=== PATIENT | male | born 1995 | race Caucasian/White ===

== ENCOUNTER 2022-08-08 14:56 | Emergency (ER) | payer BC, SELFPAY ==
[2022-08-08 15:19] VITALS: BP 124/78; PULSE 54; RESP 16; TEMP 36.6; O2SAT 98; BMI 21.5
--- NOTE | 2022-08-08 17:48 | ED.GENADULT ---
HPI - General Adult General Chief complaint: Overdose Stated complaint: Overdose Fentanyl Xanex Time Seen by Provider: 08/08/22 17:27 History of Present Illness HPI narrative: This 26-year-old male comes in reporting symptoms of anxiety and insomnia. He states that he went through treatment a couple months ago and came off of benzodiazepines. He states that he took Xanax a couple days ago. He got this from a friend who is making it. He states that they were foreign 0.5 mg and he took 2 of them. He also had some alcohol yesterday. He states that he smokes marijuana. He does have prescription for gabapentin and Effexor and states that those are not helping him at all. Related Data Home Medications Medication Instructions Recorded Confirmed aripiprazole 5 mg tablet (Abilify) 5 mg PO BID 08/08/22 08/08/22 doxycycline hyclate 30 mg PO HS 08/08/22 08/08/22 gabapentin 400 mg capsule 400 mg PO TID 08/08/22 08/08/22 Previous Rx's Medication Instructions Recorded hydroxyzine pamoate 25 mg capsule 25 mg PO QID PRN #30 caps 08/08/22 (Vistaril) Allergies Allergy/AdvReac Type Severity Reaction Status Date / Time banana Allergy Mild violently Verified 08/08/22 15:29 ill Review of Systems Status of ROS: Reports: 10 or more systems reviewed and unremarkable except as noted in History and below Narrative: Constitutional: No fevers, no weight gain or loss. Eyes: No discharge. No vision changes. HENT: No congestion, no sore throat, no ear pain. Cardiovascular: No chest pain, no palpitations. Respiratory: No shortness of breath, no wheezes, no cough. Gastrointestinal: No abdominal pain, no vomiting, no diarrhea. Genitourinary: No dysuria, no hematuria. Musculoskeletal: Normal range of motion. Skin: No rashes, no pruritis. Neurological: No dizziness, weakness, sensory change, speech change. Endo/Heme/Allergies: No bruising or bleeding. No polydipsia. Pysch: He reports anxiety and panic symptoms. He has insomnia. All other systems reviewed and are negative. PFSH PFSH Social History Smoking Status: Current every day smoker Do you use any of these nicotine containing products: E-Cigarettes Second hand tobacco smoke exposure: No How often do you have a drink containing alcohol: monthly or less How many standard drinks containing alcohol do you have on a typical day: 1 or 2 How often do you have six or more drinks on one occasion: Never AUDIT-C Alcohol total score: 1 Non-prescribed substance use: marijuana (any form) and sedatives/tranquilizers Exam Narrative: Exam Narrative: Constitutional: Well-developed, well-nourished, no acute distress. HEENT: Normocephalic, atraumatic. Neck: Normal range of motion. Nontender. Supple. Heart: Regular. No murmurs. Normal rate. Intact distal pulses. Lungs: Clear to auscultation. No chest discomfort. No wheezes, rhonchi, or rales. Abdomen: Normal bowel sounds. Nontender. No rebound tenderness. Genitalia: Deferred. Back: No midline tenderness. Normal range of motion. Extremities: Normal range of motion. No injury. Skin: Intact. No rash. Warm. No erythema or pallor. Neurologic: No altered sensation. No weakness. Alert and oriented. His speech is slightly slurred. Psychiatric: No suicidality. He reports anxiety and panic. He has insomnia. Nursing notes and vitals signs are reviewed. Const: Vital Signs, click to edit/add: Vital Signs - 24 hr 08/08/22 15:19 08/08/22 18:00 Temperature 97.8 F Pulse Rate [Right Pulse Oximeter] 54 L 55 L Respiratory Rate 16 Blood Pressure [Ri ght Upper Arm] 124/78 140/99 H Pulse Oximetry 98 99 Oxygen Delivery Me thod Room Air Room Air Course Vital Signs Vital signs: Initial Vital Signs Temperature 97.8 F 08/08/22 15:19 Temperature Source Temporal Artery Scan 08/08/22 15:19 Pulse Rate 54 L 08/08/22 15:19 Respiratory Rate 16 08/08/22 15:19 Blood Pressure 124/78 08/08/22 15:19 Blood Pressure Mean 93 08/08/22 15:19 Blood Pressure Position Sitting 08/08/22 15:19 Pulse Oximetry 98 08/08/22 15:19 Oxygen Delivery Method 08/08/22 15:19 Vital Signs Temperature 97.8 F 08/08/22 15:19 Pulse Rate 54 L 08/08/22 15:19 Respiratory Rate 16 08/08/22 15:19 Blood Pressure 124/78 08/08/22 15:19 Pulse Oximetry 98 08/08/22 15:19 Oxygen Delivery Method 08/08/22 15:19 Temperature 97.8 F 08/08/22 15:19 Pulse Rate 55 L 08/08/22 18:00 Respiratory Rate 16 08/08/22 15:19 Blood Pressure 140/99 H 08/08/22 18:00 Pulse Oximetry 99 08/08/22 18:00 Oxygen Delivery Method 08/08/22 18:00 Medical Decision Making MDM Narrative Medical decision making narrative: This patient comes in reporting anxiety and insomnia symptoms. He has lots of anxiety and admits to taking a total of 9 mg of Xanax a couple days ago. This was the 1 time event on that day. He is not taking Xanax regularly and does not appear to be in risk of withdrawal symptoms. He did state to the nurse that he thinks about not living anymore. A tele health assessment was ordered and completed. He does not have any specific suicide plan. The tele health quality technician also spoke with the patient's father who states that he has been doing great except for this relapse that happened a couple days ago. This patient is okay to return home. His labs and urine drug screen are not identifying any other findings. He agrees to a safety plan and arrangements are made for follow-up therapy. I did prescribe hydroxyzine for additional antianxiety benefit. This may also help him with his insomnia. Lab Data Labs: Lab Results 08/08/22 08/08/22 08/08/22 Range/Units 17:55 18:02 18:02 WBC 5.94 (4.50-11.00) K/uL RBC 4.90 (4.30-5.90) m/uL Hgb 16.1 (13.5-17.5) gm/dL Hct 45.8 (37.0-53.0) % MCV 94 (80-100) fL MCH 33 (26-34) pg MCHC 35 (32-36) gm/dL RDW Coeff of Abram 11.6 (11.5-15.5) % Plt Count 363 (140-440) K/uL Neut % (Auto) 45.1 (42.0-72.0) % Lymph % (Auto) 43.1 (20-44) % [place] % (Auto) 6.6 (0.0-11.0) % Eos % (Auto) 4.4 (0.0-7.0) % Baso % (Auto) 0.8 (0.0-3.0) % Neut # (Auto) 2.68 (1.7-7.0) K/uL Lymph # (Auto) 2.56 (0.90-2.90) K/uL [place] # (Auto) 0.40 (0.00-0.90) K/UL Eos # (Auto) 0.26 (0.00-0.50) K/uL Baso # (Auto) 0.05 (0.00-0.30) K/uL Abs Immat Gran (auto) 0.00 (0.00-0.30) K/uL Sodium 141 (135-149) mmol/L Potassium 4.2 (3.6-5.1) mmol/L Chloride 104 (96-114) mmol/L Carbon Dioxide 27 (20-32) mmol/L BUN 16 (5-24) mg/dL Creatinine 0.9 (0.5-1.5) mg/dL Estimated Creat Clear 120.75 Estimated GFR 122 ml/min Glucose 100 (60-115) mg/dL Calcium 10.2 (8.4-10.6) mg/dL Total Bilirubin 0.3 (0.1-1.5) mg/dL Direct Bilirubin 0.1 (0.0-0.5) mg/dL AST 25 (12-35) U/L ALT 20 (4-50) U/L Alkaline Phosphatase 74 (40-150) U/L Total Protein 8.5 H (6.0-8.3) g/dL Albumin 5.3 H (3.3-5.0) g/dL Urine Opiates Screen Negative (Negative) Ur Oxycodone Screen Negative (Negative) Urine Methadone Screen Negative (Negative) Ur Propoxyphene Screen Negative (Negative) Acetaminophen < 10.0 L (10.0-30.0) ug/mL Ur Barbiturates Screen Negative (Negative) U Tricyclic Antidepress POSITIVE A* (Negative) Ur Phencyclidine Scrn Negative (Negative) Ur Amphetamines Screen Negative (Negative) U Methamphetamines Scrn Negative (Negative) U Benzodiazepines Scrn POSITIVE A* (Negative) Urine Cocaine Screen Negative (Negative) U Marijuana (THC) Screen POSITIVE A* (Negative) Ur Drug Screen Comment See Note Ethyl Alcohol < 0.01 L (0.01-0.03) % Discharge Plan Discharge Clinical Impression: Anxiety, Drug overdose Patient Disposition: Home w/ Parent or Adult Condition: Stable Additional Instructions: Take medication as prescribed. Follow up with therapy session as arranged. Follow-up with primary physician for ongoing management of symptoms and medications. Return if worsening. Prescriptions: New hydroxyzine pamoate [Vistaril] 25 mg capsule 25 mg PO QID PRNQty: 30 0RF No Action gabapentin 400 mg capsule 400 mg PO TID doxycycline hyclate [Doxi Film] 30 mg PO HS aripiprazole [Abilify] 5 mg tablet 5 mg PO BID Follow Up/Referrals: Provider,Not a Local [Primary Care Provider] - Stand Alone Forms: [employer] Info Instructions
[2022-08-08 18:00] VITALS: BP 140/99; PULSE 55; O2SAT 99
[2022-08-08 18:10] LABS: Amphetamine Screen Urine Negative (Negative); Barbiturate Screen Urine Negative (Negative); Cocaine Screen Urine Negative (Negative); Methadone Screen Urine Negative (Negative); Methamphetamines Screen Urine Negative (Negative); Opiate Screen Urine Negative (Negative); Oxycodone Screen Urine Negative (Negative); Phencyclidine Screen Urine Negative (Negative)
[2022-08-08 18:20] LABS: Benzodiazepines Screen Urine POSITIVE (Negative); Cannabinoid Screen Urine POSITIVE (Negative); Tricyclic Antidepressant Urine POSITIVE (Negative)
[2022-08-08 18:34] LABS: Basophils Absolute Auto 0.05 K/uL (0.00-0.30); Basophils Percent Auto 0.8 % (0.0-3.0); Eosinophils Absolute Auto 0.26 K/uL (0.00-0.50); Eosinophils Percent Auto 4.4 % (0.0-7.0); Hematocrit 45.8 % (37.0-53.0); Hemoglobin* 16.1 gm/dL (13.5-17.5); Lymphocytes Absolute Auto 2.56 K/uL (0.90-2.90); Lymphocytes Percent Auto 43.1 % (20-44); Mean Corpuscular HGB Conc 35 gm/dL (32-36); Mean Corpuscular Hemoglobin 33 pg (26-34); Mean Corpuscular Volume 94 fL (80-100); Monocytes Percent Auto 6.6 % (0.0-11.0); Neutrophils Absolute Auto 2.68 K/uL (1.7-7.0); Neutrophils Percent Auto 45.1 % (42.0-72.0); Platelet Count* 363 K/uL (140-440); RDW Coefficient of Variation % 11.6 % (11.5-15.5); White Blood Count* 5.94 K/uL (4.50-11.00)
[2022-08-08 18:37] LABS: Albumin* 5.3 g/dL (3.3-5.0)
[2022-08-08 18:38] LABS: Chloride* 104 mmol/L (96-114); Potassium* 4.2 mmol/L (3.6-5.1); Sodium* 141 mmol/L (135-149)
[2022-08-08 18:40] LABS: Aspartate Amino Transferase* 25 U/L (12-35); Bilirubin Direct* 0.1 mg/dL (0.0-0.5); Bilirubin Total* 0.3 mg/dL (0.1-1.5); Carbon Dioxide* 27 mmol/L (20-32); Creatinine* 0.9 mg/dL (0.5-1.5); Est. Creatinine Clearance* 120.75; Estimated Glomerular Filt Rate 122 ml/min; Total Protein* 8.5 g/dL (6.0-8.3)
[2022-08-08 18:41] LABS: Alanine Aminotransferase* 20 U/L (4-50); Alkaline Phosphatase* 74 U/L (40-150); Blood Urea Nitrogen* 16 mg/dL (5-24); Calcium* 10.2 mg/dL (8.4-10.6); Glucose* 100 mg/dL (60-115); Slide Review Reflex No
[2022-08-08 18:42] LABS: Acetaminophen* < 10.0 ug/mL (10.0-30.0); Ethanol* < 0.01 % (0.01-0.03)
--- NOTE | 2022-08-08 18:59 | ED.NURSE ---
DEC assessment started.
== END 2022-08-08 20:09 | disposition home or self-care (01) ==
PROVIDERS: Emergency Provider Emergency Medicine Emergency Medical Services
DX: T40.411A Poisoning by fentanyl or fentanyl analogs, accidental (unintentional), initial encounter (principal); F41.9 Anxiety disorder, unspecified; F17.290 Nicotine dependence, other tobacco product, uncomplicated; X58.XXXA Exposure to other specified factors, initial encounter; G47.00 Insomnia, unspecified
CPT/HCPCS: 36415; 80048; 80076; 80143; 80306; 82077; 85025; 99285; 99291